=== PATIENT | male | born 1965 | race Caucasian/White ===

== ENCOUNTER 2021-10-03 11:34 | Outpatient (CLI) | payer OTHER, SELFPAY ==
--- NOTE | ~2021-10-03 | MM_ITS ---
EXAMINATION: MM diagnostic mammo unilat LT HISTORY: Lump behind left nipple TECHNIQUE: Bilateral MLO and left CC views.. CAD analysis was submitted and interpreted. COMPARISON: None BREAST PARENCHYMAL COMPOSITION: There are scattered areas of fibroglandular density. FINDINGS: There is bilateral gynecomastia, mild on the left, minimal on the right. No suspicious mass, architectural distortion, malignant calcification, skin thickening or retraction is detected. IMPRESSION: Bilateral gynecomastia; no mammographic evidence of malignancy BI-RADS Category 2: Benign finding(s). Reviewed, dictated and finalized at location A.
--- NOTE | ~2021-10-03 | US_ITS ---
EXAMINATION: US soft tissue head and neck DATE: 10/03/2021 13:49 INDICATION: Right cervical lymphadenopathy. TECHNIQUE: Multiple grayscale and Doppler ultrasound images of the neck were obtained. COMPARISON: CT neck 11/20/17 FINDINGS: There is no abnormal mass in the patient's area of concern in right neck. There are normal lymph nodes in right neck. IMPRESSION: 1. No abnormal mass or lymphadenopathy in the patient's area of concern in right neck. Reviewed, dictated and finalized at location A. IMPRESSION: 1. No abnormal mass or lymphadenopathy in the patient's area of concern in righ t neck.
--- NOTE | ~2021-10-03 | XR_ITS ---
XR chest 2V 10/03/2021 13:18 Indication: Lymph node swelling Procedure: 2 view chest Comparison: Comparison to multiple prior studies sequentially, with oldest reviewed study dated 07/2005. Findings: Left basilar infiltrates may represent atelectasis or developing pneumonia. Heart size norm al. Right lung is clear. No pneumothorax. No pleural effusion, edema. No acute osseous abnormality. Impression: 1: Left basilar infiltrates may represent atelectasis or developing pneumonia. Reviewed, dictated and finalized at location A. Impression: 1: Left basilar infiltrates may represent atelectasis or developing pneumonia.
== END 2021-10-03 11:35 | disposition home or self-care (01) ==
PROVIDERS: Visit Provider Nurse Practitioner Adult Health
DX: R59.1 Generalized enlarged lymph nodes (principal); N62 Hypertrophy of breast; R91.8 Other nonspecific abnormal finding of lung field
CPT/HCPCS: 71046; 76536; 77065